=== PATIENT | male | born 1980 | race Caucasian/White ===

== ENCOUNTER 2018-06-27 02:06 | Emergency (ER) | payer OTHER ==
[2018-06-27 02:51] VITALS: BP 151/99; PULSE 102; TEMP 98.1; BMI 26.5
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
[2018-06-27] MEDS ORDERED: TETRACAINE 0.5% OPHTH SOLN 2 ML BOTTLE TP ONE (03:52)
[2018-06-27] MEDS ORDERED: FLUORESCEIN NA 1 EA STRIP OD ONE (03:55)
[2018-06-27] MEDS ORDERED: FLUORESCEIN NA 1 EA STRIP ONE (04:00)
[2018-06-27] MEDS ORDERED: TETRACAINE 0.5% OPHTH SOLN 2 ML BOTTLE ONE (04:00)
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
== END 2018-06-27 05:57 | disposition home or self-care (01) ==
LOC: JER 02:06
DX: T26.02XA Burn of left eyelid and periocular area, initial encounter (principal); T26.01XA Burn of right eyelid and periocular area, initial encounter; T65.891A Toxic effect of other specified substances, accidental (unintentional), initial encounter; Y92.59 Other trade areas as the place of occurrence of the external cause; Y93.89 Activity, other specified; Y99.0 Civilian activity done for income or pay
CPT/HCPCS: 99283-25

== ENCOUNTER 2018-08-23 19:33 | Emergency (ER) | payer OTHER ==
[2018-08-23 20:05] VITALS: BP 138/92; PULSE 92; TEMP 97.2; BMI 26.3
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
[2018-08-23] MEDS ORDERED: ASPIRIN 81 MG CHEWABLE TABLETS PO ONE ×2 (20:50→21:24)
[2018-08-23] MEDS ORDERED: ONDANSETRON *ODT* 4 MG TABLET SL ONE (20:53)
[2018-08-23] MEDS ORDERED: ASPIRIN 81 MG CHEWABLE TABLETS ONE (21:08)
[2018-08-23] MEDS ORDERED: ONDANSETRON *ODT* 4 MG TABLET ONE (21:24)
[2018-08-23 22:25] LABS: BASO % 0.5 % (0-2.0); EOS % 1.4 % (0-4.5); HEMATOCRIT 44.4 % (35.4-49); HEMOGLOBIN 15.6 GM/dL (11.7-16.9); LYMPH % 28.3 % (8-40); MCH 29.4 pg (25.7-33.7); MCHC 35.2 g/dl (32.0-35.9); MEAN CELL VOLUME 83.5 fl (80-96); MEAN PLT VOLUME 8.8 fl (7.5-11.1); MONO % 6.4 % (3.8-10.2); NEUT % 63.4 % (42.8-82.8); PLATELET COUNT 232 K/MM3 (134-434); RBC 5.32 M/mm3 (4.00-5.60); RDW 13.7 % (11.9-15.9); WHITE BLOOD COUNT 5.7 K/mm3 (4.0-10.0)
--- NOTE | 2018-08-23 22:27 | PDOC ---
*Physical Exam - Vital Signs Last Vital Signs Temp Pulse Resp BP Pulse Ox 97.2 F L 92 H 20 138/92 100 08/23/18 19:59 08/23/18 19:59 08/23/18 19:59 08/23/18 19:59 08/23/18 21:51 ED Treatment Course - LABORATORY CBC & Chemistry Diagram: 08/23/18 21:44 08/23/18 21:44 - Medications Given in the ED: ED Medications Discontinued Medications Generic Name Dose Route Start Last Admin Trade Name Caesar PRN Reason Stop Dose Admin Aspirin 162 mg 08/23/18 20:50 08/23/18 21:49 Asa - PO 08/23/18 20:51 Not Given ONCE ONE Aspirin 162 mg 08/23/18 21:24 08/23/18 21:49 Asa - PO 08/23/18 21:25 162 mg ONCE ONE Administration Ondansetron HCl 4 mg 08/23/18 20:53 08/23/18 21:30 Zofran Odt - SL 08/23/18 20:54 4 mg ONCE ONE Administration Medical Decision Making - Medical Decision Making Patient signed out to me by KELLY Long Currently resting in NAD, denies any complaints Initial EKG showed NSR at 76 bpm, TWI lead III Patient pending results of labs 08/23/18 22:26 Labs reviewed and unremarkable other than glucose of 66 Patient had juice and crackers to eat Patient overall feeling better than before other than mild nausea Stable for dc 08/24/18 01:32 *DC/Admit/Observation/Transfer Diagnosis at time of Disposition: Exposure to chemical inhalation Chest pain Qualifiers: Chest pain type: other chest pain Qualified Code(s): R07.89 - Other chest pain - Discharge Dispostion Disposition: HOME Condition at time of disposition: Improved Decision to Admit order: No - Referrals Referrals: Hira Salter MD [Staff Physician] - 2 Days - Patient Instructions Additional Instructions: Thank you for choosing [facility]. It was a pleasure taking care of you. Your labs were unremarkable Stay hydrated - drink at least 2 L of water daily Follow-up with PCP in 2-3 days Return to the Emergency Department if your symptoms worsen or persist or have other concerning symptoms. - Post Discharge Activity Forms/Work/School Notes: Back to Work
[2018-08-23 22:44] LABS: INR 1.03 (0.83-1.09); PROTHROMBIN TIME (PATIENT) 12.2 SEC (9.7-13.0)
[2018-08-24 00:49] LABS: ALBUMIN 4.8 g/dl (3.4-5.0); ALK PHOS 115 U/L (45-117); ANION GAP 7 MMOL/L (8-16); BILIRUBIN,TOTAL 0.7 mg/dL (0.2-1); BLOOD UREA NITROGEN 20 mg/dL (7-18); CALCIUM 9.2 mg/dL (8.5-10.1); CHLORIDE 104 mmol/L (98-107); CO2 28 mmol/L (21-32); CREATININE 0.9 mg/dL (0.55-1.3); GLUCOSE,RANDOM 66 mg/dL (74-106); POTASSIUM 3.9 mmol/L (3.5-5.1); SGPT/ALT 87 U/L (13-61); SODIUM 138 mmol/L (136-145); TOT PROT 7.6 g/dl (6.4-8.2)
[2018-08-24 01:23] LABS: SGOT/AST 33 U/L (15-37)
--- NOTE | 2018-08-24 13:19 | EKG ---
Test Reason : Blood Pressure : / mmHG Vent. Rate : 076 BPM Atrial Rate : 076 BPM P-R Int : 168 ms QRS Dur : 100 ms QT Int : 364 ms P-R-T Axes : 056 013 027 degrees QTc Int : 409 ms NORMAL SINUS RHYTHM NORMAL ECG NO PREVIOUS ECGS AVAILABLE Confirmed by ROBBY JOVEL, SHEA ([id number]) on 08/24/2018 1:19:12 PM Referred By: Confirmed By:SHEA BUSTAMANTE MD
== END 2018-08-24 01:55 | disposition home or self-care (01) ==
LOC: JERFT 19:33 → JER 19:33
DX: Z77.098 Contact with and (suspected) exposure to other hazardous, chiefly nonmedicinal, chemicals (principal); R07.89 Other chest pain; R05 Cough; R42 Dizziness and giddiness; R11.0 Nausea; Y92.59 Other trade areas as the place of occurrence of the external cause
CPT/HCPCS: 36415; 71046-TC-FY; 80053; 82550; 82553; 83735; 84484; 85025; 85610; 93005; 93010; 99282-25; Q0162